=== PATIENT | female | born 1975 | race Caucasian/White ===

== ENCOUNTER → 2020-10-21 09:57 | Outpatient (BNVA) | payer OTHER, SELFPAY | PROVIDERS: PCP Internal Medicine; Referring Provider Internal Medicine; Visit Provider Surgery | DX: K64.4 Residual hemorrhoidal skin tags (principal) | CPT/HCPCS: 46600; 99202 ==

== ENCOUNTER 2020-11-12 06:23 | Day surgery (SDC) | payer OTHER, SELFPAY ==
[2020-11-07 09:38] VITALS: BMI 29.0
[2020-11-12] VITALS (7 sets, daily range): BP systolic 92–109; BP diastolic 61–70; PULSE 60–71; RESP 16–18; TEMP 36.4–37.1; O2SAT 94–99
[2020-11-12 07:25] LABS: UPreg QC Valid YES; Urine Pregnancy NEGATIVE (NEGATIVE)
--- NOTE | 2020-11-12 07:56 | HO.ANESPROP2 ---
[facility] Active Problems Active Problems: All Active Problems (Updated 11/07/20 @ 09:37 by Geneva Dean) Hordeolum externum of right eye (Acute) External hemorrhoids with complication (Acute) Past Medical History Medical History Depression External hemorrhoids with complication Surgical History Surgical History H/O section H/O tubal ligation History of hand surgery History of hemorrhoidectomy History of wisdom tooth extraction Social History Social History Patient Tobacco Use Status: Current someday Tobacco user Tobacco use type: Cigarette Use of substances other than those prescribed or required for medical reasons: No Are you DNR?: No Advance Directives: No Advance Directives Information Provided: No Meds Allergies Allergy/AdvReac Type Severity Reaction Status Date / Time bee pollen [BEE STINGS] Allergy Severe SWELLING Verified 11/12/20 07:05 Environmental Allergy Intermediate Nose Bleed Uncoded 11/12/20 07:05 Home Medications Medication Instructions Recorded Confirmed Last Taken Type bupropion HCl 150 mg 24 hr tablet, 150 mg PO QAM 03/06/20 11/07/20 Unknown History extended release bupropion HCl 300 mg 24 hr tablet, 300 mg PO DAILY 03/06/20 11/07/20 Unknown History extended release epinephrine 0.3 mg/0.3 mL 0.3 mg IM ONCE PRN 03/06/20 11/07/20 Unknown History injection, auto-injector flu vacc [id number] 6mos up(PF) ml IM 03/06/20 10/21/20 Unknown History prednisone 20 mg tablet 20 mg PO BID 03/06/20 10/21/20 Unknown History sertraline 100 mg tablet mg PO 03/06/20 10/21/20 Unknown History sertraline 25 mg tablet 25 mg PO DAILY 03/06/20 11/07/20 Unknown History fluoxetine 40 mg capsule 40 mg PO DAILY 10/21/20 11/07/20 Unknown History Exam Exam Date and Time: November 12, 2020 0756 Height,Weight and Vital Signs: Height 5 ft 2 in Weight 72 kg Last Vital Signs Temp 98.7 F 11/12/20 07:24 Pulse 70 11/12/20 07:24 Resp 18 11/12/20 07:24 BP 107/61 11/12/20 07:24 Pulse Ox 98 11/12/20 07:24 Pertinent Lab Results Pertinent Lab Results: Laboratory Tests 11/12/20 07:08 Urine Test NEGATIVE Airway Mallampati Class: II TM Dist: >3cm Neck ROM: Full Assessment and Plan Assessment Anesthesia Assessment: Anesthesia Plan Discussed and Chart Reviewed Final Anesthetic Review NPO: Yes ASA Class: I Final Preanesthetic Review: No Changes in Pt Med Stat, Meds/Allgs Chart Reviewed, Consent Obtained/Reviewed and Anes Risks/Benef Reviewed Patient Risk: Low Procedure Risk: Low Assessment/Block/Sedation in SS: Assess/Block/Sedation-SS Anesthetic Plan Anesthetic Plan: GA Disposition: Standard PACU
--- NOTE | 2020-11-12 08:12 | MHC.SHP ---
Pre-Procedural Eval Section A Date of Service: 11/12/20 Section B Chief Complaint: External hemorrhoids with complication Allergies: Allergies Allergy/AdvReac Type Severity Reaction Status Date / Time bee pollen [BEE STINGS] Allergy Severe SWELLING Verified 11/12/20 07:05 Environmental Allergy Intermediate Nose Bleed Uncoded 11/12/20 07:05 Plan I have reviewed the history and physical and performed a pertinent physical examination on my patient. No changes have occurred unless specified.
[2020-11-12] MEDS: Lactated Ringers 500 ML 20 ML IVCONT (08:18)
--- NOTE | 2020-11-12 08:59 | W.PM.OPN ---
Operative Note Operative Note Date of Service: 11/12/20 Narrative: Preop diagnosis: External hemorrhoids Postop diagnosis: External hemorrhoids Procedure: Exam under anesthesia hemorrhoidectomy x2 Surgeon: Charles Coto MD The patient is a 45-year-old female with note of external hemorrhoids which he states has been bothering her and she wanted removed. She understood technique lumpectomy. She was aware of the risks, benefits, and alternatives. She had given consent She was brought to the operating room and placed in prone giancarlo-knife position under general anesthesia via LMA. The buttocks were retracted with tape laterally. The perianal area was prepped and draped in the usual sterile fashion. A surgical time-out was done. The patient received Cefotan 2 g IV preoperatively Examination of the anal orifice showed external hemorrhoids on the right side as well as anteriorly. I inserted the Karthik Roger retractor and examined the anal canal circumferentially. There were no significant internal hemorrhoids and there were no other lesions. I did not see any fissure or any induration. I therefore applied a Martin grasper at the external hemorrhoidal column on the right side. I made a bkeyie-cy-qwrpp stitch using chromic 3-0 proximal to this. I made an incision around this hemorrhoidal column using a blade 15. I excised this hemorrhoidal column above the plane of sphincters using scissors. I closed this incision with a running chromic 3-0 stitch using the same suture I made earlier. Additional hemostatic ejbvnd-[id number]-[id number] sutures were placed. I retracted the 2nd hemorrhoidal column with the Martin grasper and made a unxluw-mm-mybqi stitch just proximal to this. This was also made using chromic 3-0. I made an incision around this hemorrhoidal column using blade 15. I excised this hemorrhoidal tissue above the plane of sphincters using scissors. I closed the incision with a running chromic 3-0 stitch with additional hemostatic sutures placed. Once hemostasis was ensured I proceeded to insert a rolled Gelfoam packing into the anal canal. I infiltrated the perianal area with Marcaine 0.5% for postop analgesia. Procedure was then completed The patient tolerated procedure well. There were no complications noted. Initial fine counts of sponges and instruments were correct. Estimated blood loss was about 20 cc. The patient was extubated without difficulty and transferred to the recovery room with stable vital signs.
--- NOTE | 2020-11-12 09:08 | P.BOP_ITS ---
Brief Operative Note Date of Service: 11/12/20 Pre-op diagnosis: Preop diagnosis: External hemorrhoids Post-op diagnosis: same Procedure: EUA, hemorrhoidectomy x2 Surgeon: Charles Coto MD Anesthesia: GLMA Was an [employer] used for this Procedure?: No Estimated blood loss (mL): 20 Pathology: other (Hemorrhoids) Condition: stable Disposition: PACU
== END 2020-11-12 10:30 | disposition home or self-care (01) ==
PROVIDERS: Anesthesiology; PCP Internal Medicine; Visit Provider Surgery
PROC: (CPT 46250; principal; 2020-11-12 08:40)
DX: K64.4 Residual hemorrhoidal skin tags (principal); K62.89 Other specified diseases of anus and rectum; F32.9 Major depressive disorder, single episode, unspecified; Z79.899 Other long term (current) drug therapy; F17.210 Nicotine dependence, cigarettes, uncomplicated
CPT/HCPCS: 46250; 81025; 88304; J1100; J2250; J2405; J3010

== ENCOUNTER 2020-11-22 17:19 | Emergency (ER) | payer OTHER, SELFPAY ==
[2020-11-22 17:33] VITALS: BP 143/78; PULSE 78; RESP 16; TEMP 36.8; O2SAT 99; BMI 29.2
--- NOTE | 2020-11-22 17:54 | ED.GENADULT ---
HPI - General Adult General Chief complaint: General Medical Stated complaint: pt had surgery, possible infection Time Seen by Provider: 11/22/20 17:33 Related Data Home Medications Medication Instructions Recorded Confirmed bupropion HCl 150 mg 24 hr tablet, 150 mg PO QAM 03/06/20 11/07/20 extended release bupropion HCl 300 mg 24 hr tablet, 300 mg PO DAILY 03/06/20 11/07/20 extended release epinephrine 0.3 mg/0.3 mL 0.3 mg IM ONCE PRN 03/06/20 11/07/20 injection, auto-injector flu vacc [id number] 6mos up(PF) ml IM 03/06/20 10/21/20 prednisone 20 mg tablet 20 mg PO BID 03/06/20 10/21/20 sertraline 100 mg tablet mg PO 03/06/20 10/21/20 sertraline 25 mg tablet 25 mg PO DAILY 03/06/20 11/07/20 fluoxetine 40 mg capsule 40 mg PO DAILY 10/21/20 11/07/20 Previous Rx's Medication Instructions Recorded docusate sodium [Colace] 100 mg PO BID #60 cap 11/12/20 ibuprofen 600 mg PO Q6H PRN #30 tab 11/12/20 oxycodone-acetaminophen [Percocet] 1 - 2 tab PO Q4-6H PRN #30 tab 11/12/20 Allergies Allergy/AdvReac Type Severity Reaction Status Date / Time bee pollen [BEE STINGS] Allergy Severe SWELLING Verified 11/12/20 07:05 Environmental Allergy Intermediate Nose Bleed Uncoded 11/12/20 07:05 PMFSH Past Medical History Medical History Depression External hemorrhoids with complication Surgical History H/O section H/O tubal ligation History of hand surgery History of hemorrhoidectomy History of wisdom tooth extraction Social History Social History Patient Tobacco Use Status: Current someday Tobacco user Tobacco use type: Cigarette Patient : No Physical Exam Vital Signs: Vital Signs: Last Vital Signs Temp 98.2 F 11/22/20 17:33 Pulse 78 11/22/20 17:33 Resp 16 11/22/20 17:33 BP 143/78 H 11/22/20 17:33 Pulse Ox 99 11/22/20 17:33 Body Mass Index 29.2 Course Course Course Narrative: 45-year-old female who recently had a hemorrhoidectomy on 11/12/[address] Coto presenting to the ED with complaints of purulent discharge that she noticed today. On exam patient has the sutures still in place although she has mild purulent drainage from the hemorrhoidectomy area. No streaking/induration/surrounding erythema noted at this time. On exam patient is alert and oriented x3. Not in any acute distress. Mildly hypertensive 143/78. Although all other vitals are within normal limits and she is stable to go back to the waiting room to be evaluated in the emergency department. Labs ordered at this time. Discharge Plan Discharge Prescriptions: No Action oxycodone-acetaminophen [Percocet] 5-325 mg tablet 1 - 2 tab PO Q4-6H PRN (Reason: pain) Qty: 30 RF: 0 docusate sodium [Colace] 100 mg capsule 100 mg PO BID Qty: 60 RF: 2 ibuprofen 600 mg tablet 600 mg PO Q6H PRN (Reason: pain) Qty: 30 RF: 0 Fluarix Quad [id number] (PF) 60 mcg (15 mcg x 4)/0.5 mL syringe IM RF: 0 sertraline 25 mg tablet 25 mg PO DAILY RF: 0 epinephrine 0.3 mg/0.3 mL auto-injector 0.3 mg IM ONCE PRN (Reason: Anaphylaxis) RF: 0 bupropion HCl 300 mg tablet extended release 24 hr 300 mg PO DAILY RF: 0 sertraline 100 mg tablet PO RF: 0 prednisone 20 mg tablet 20 mg PO BID RF: 0 bupropion HCl 150 mg tablet extended release 24 hr 150 mg PO QAM RF: 0 fluoxetine 40 mg capsule 40 mg PO DAILY RF: 0
--- NOTE | 2020-11-22 20:25 | ED_ITS ---
HPI - General Adult General Chief complaint: General Medical Stated complaint: pt had surgery, possible infection Time Seen by Provider: 11/22/20 17:33 Source: patient Mode of arrival: ambulatory Limitations: no limitations History of Present Illness HPI narrative: 45-year-old female presents with purulent drainage from hemorrhoidectomy site. Had sutures removed by surgeon, states to have some tenderness at the site with yellow purulent malodorous drainage. She did not report any fevers or chills, does not report any difficulty with bowel movements, denies chest pain or pressure, palpitations, shortness of breath, shortness of breath on exertion, nausea, vomiting, diarrhea, constipation, dysuria, hematuria, edema, or any other concerning symptoms. Onset (ago): day(s) (One) Radiation: non-radiation Severity: moderate Severity scale (1-10): 5 Quality: burning and aching Pain Consistency: constant Relieving factors: none Exacerbating factors: other (Bowel movement) Associated symptoms: denies other symptoms Treatments prior to arrival: none Related Data Home Medications Medication Instructions Recorded Confirmed bupropion HCl 150 mg 24 hr tablet, 150 mg PO QAM 03/06/20 11/07/20 extended release bupropion HCl 300 mg 24 hr tablet, 300 mg PO DAILY 03/06/20 11/07/20 extended release epinephrine 0.3 mg/0.3 mL 0.3 mg IM ONCE PRN 03/06/20 11/07/20 injection, auto-injector flu vacc [id number] 6mos up(PF) ml IM 03/06/20 10/21/20 prednisone 20 mg tablet 20 mg PO BID 03/06/20 10/21/20 sertraline 100 mg tablet mg PO 03/06/20 10/21/20 sertraline 25 mg tablet 25 mg PO DAILY 03/06/20 11/07/20 fluoxetine 40 mg capsule 40 mg PO DAILY 10/21/20 11/07/20 Previous Rx's Medication Instructions Recorded docusate sodium [Colace] 100 mg PO BID #60 cap 11/12/20 ibuprofen 600 mg PO Q6H PRN #30 tab 11/12/20 oxycodone-acetaminophen [Percocet] 1 - 2 tab PO Q4-6H PRN #30 tab 11/12/20 cefuroxime axetil 500 mg PO Q12H 10 Days #20 tab 11/22/20 doxycycline monohydrate 100 mg PO BID 10 Days #20 tab 11/22/20 Allergies Allergy/AdvReac Type Severity Reaction Status Date / Time bee pollen [BEE STINGS] Allergy Severe SWELLING Verified 11/12/20 07:05 Environmental Allergy Intermediate Nose Bleed Uncoded 11/12/20 07:05 Review of Systems Review of Systems: Constitutional: No Fever, No Chills ENT/Mouth: No Ear Pain, No Hoarseness, No sore throat Eyes: No Eye Pain, No Swelling, No Redness, No Foreign Body Cardiovascular: No Chest Pain, No SOB Respiratory: No Cough, No Dyspnea Gastrointestinal: Rectal pain and drainage, No Nausea, No Vomiting, No Diarrhea, No abdominal Pain Genitourinary: No Dysuria, No Hematuria Musculoskeletal: No joint pain, No Myalgias, No Joint Swelling Skin: No Skin lacerations, No rash Neuro: No Weakness, No Numbness, No Paresthesias, No Loss of Consciousness, No Dizziness, No Headache Psych: No Anxiety/Panic, No Depression Heme/Lymph: no easy bruising, no Lymphadenopathy Endocrine: No Polyuria, No Polydipsia Yes all other systems are reviewed and are negative [facility] Past Medical History Attestation statement: The following information was validated with the patient. Source: old records reviewed Medical History Depression External hemorrhoids with complication Surgical History H/O section H/O tubal ligation History of hand surgery History of hemorrhoidectomy History of wisdom tooth extraction Social History Social History Patient Tobacco Use Status: Current someday Tobacco user Tobacco use type: Cigarette Advance Directives: No Advance Directives Information Provided: Yes Patient : No Physical Exam Vital Signs: Vital Signs: Last Vital Signs Temp 98.2 F 11/22/20 17:33 Pulse 78 11/22/20 17:33 Resp 16 11/22/20 17:33 BP 143/78 H 11/22/20 17:33 Pulse Ox 99 11/22/20 17:33 Body Mass Index 29.2 Appearance: Alert. Oriented X3. No acute distress. Eyes: Pupils equal, round and reactive to light. ENT: Pharynx normal. Neck: Normal inspection. Neck supple. CVS: Normal heart rate and rhythm. Pulses normal. Respiratory: No respiratory distress. Breath sounds normal. Abdomen: Soft and nontender. Genitourinary: No palpable rectal abscess, incision site well approximated, no drainage noted at this time. Skin: Skin warm and dry. Normal skin color. Normal skin turgor. Extremities: No lower extremity edema. Neuro: No motor deficit. No sensory deficit. Course Course Course Narrative: 45-year-old female presents with complications from hemorrhoid ectomy site. Had sutures removed earlier in the week and reports some purulent drainage. Upon my examination I do not see any erythema, or notice any purulent malodorous drainage at this time. Will order labs. Labs are negative for acute findings. Patient is nontoxic and afebrile. Will treat with Augmentin and have patient follow-up with her surgeon, which she has an appointment on Wednesday. Patient verbalized understanding of and agrees to plan of care discharge home. Medical Decision Making Differential Diagnosis Differential Diagnosis: Infection, hemorrhoid, abscess Medical Records Medical records reviewed: Yes I reviewed the patient's medical records. Lab Data Lab results reviewed: Yes I reviewed the patient's lab results. Result diagrams: 11/22/20 21:09 11/22/20 21:09 Labs: Lab Results 11/22/20 11/22/20 11/22/20 Range/Units 21:09 21:09 21:09 WBC 7.8 (4.8-10.8) X10*3/uL RBC 4.19 L (4.20-5.50) X10*6/uL Hgb 12.2 (12.0-16.0) g/dl Hct 36.2 L (37-47) % MCV 86.4 (80-98) fL MCH 29.1 (27.0-33.0) pg MCHC 33.7 (31.0-35.0) g/dl RDW 12.3 (11.0-16.0) % Plt Count 276 (160-400) X10*3/uL MPV 11.2 (9.4-12.3) fL Immature Gran % (Auto) 0.3 (0.0-0.4) % Neut % (Auto) 62.1 (45-73) % Lymph % (Auto) 25.9 (20-40) % [place] % (Auto) 9.8 (2-11) % Eos % (Auto) 1.5 (0-4) % Baso % (Auto) 0.4 (0-2) % Lymph # (Auto) 2.0 (1.2-4.9) X10*3/uL [place] # (Auto) 0.8 (0.1-1.2) X10*3/uL Eos # (Auto) 0.1 (0.0-0.4) X10*3/uL Baso # (Auto) 0.0 (0.0-0.2) X10*3/uL Abs Immat Gran (auto) 0.02 (0.00-0.03) X10*3/uL Absolute Neuts (auto) 4.9 (2.0-8.3) X10*3/uL Absolute Nucleated RBC 0.000 (0.0-0.012) X10*3/uL Nucleated RBC % (auto) 0.0 (0.0-0.2) /100WBC ESR 6 (0-20) MM/HR Sodium 140 (135-145) mmol/L Potassium 4.0 (3.3-5.1) mmol/L Chloride 107 (96-108) mmol/L Carbon Dioxide 26 (22-29) mmol/L Anion Gap 11 L (12-20) BUN 12 (9-16) mg/dL Creatinine 0.83 (0.5-1.4) mg/dL Estim Creat Clear Calc 81.5 Estimated GFR > 60 Random Glucose 89 (60-115) mg/dL Calcium 9.1 (8.4-10.2) mg/dL C-Reactive Protein 0.13 (< or = 0.50) mg/dL Discharge Plan Discharge Clinical Impression: External hemorrhoids with complication Patient Disposition: Home, Self-Care Instructions: Hemorrhoids (ED), Hemorrhoidectomy (DC) Additional Instructions: you were evaluated for post hemorrhoidectomy complication. Please take doxycycline and Keflex as directed. Medications are antibiotics. Please use dibucaine ointment as needed for rectal pain. Continue to follow- up with Dr. Coto on Wednesday. Thank you for choosing this emergency department for evaluation. Please follow-up with primary care physician as needed. Return to the emergency department for any new, concerning, or worsening symptoms. Prescriptions: New doxycycline monohydrate 100 mg tablet 100 mg PO BID 10 Days Qty: 20 RF: 0 cefuroxime axetil 500 mg tablet 500 mg PO Q12H 10 Days Qty: 20 RF: 0 No Action oxycodone-acetaminophen [Percocet] 5-325 mg tablet 1 - 2 tab PO Q4-6H PRN (Reason: pain) Qty: 30 RF: 0 docusate sodium [Colace] 100 mg capsule 100 mg PO BID Qty: 60 RF: 2 ibuprofen 600 mg tablet 600 mg PO Q6H PRN (Reason: pain) Qty: 30 RF: 0 Fluarix Quad [id number] (PF) 60 mcg (15 mcg x 4)/0.5 mL syringe IM RF: 0 sertraline 25 mg tablet 25 mg PO DAILY RF: 0 epinephrine 0.3 mg/0.3 mL auto-injector 0.3 mg IM ONCE PRN (Reason: Anaphylaxis) RF: 0 bupropion HCl 300 mg tablet extended release 24 hr 300 mg PO DAILY RF: 0 sertraline 100 mg tablet PO RF: 0 prednisone 20 mg tablet 20 mg PO BID RF: 0 bupropion HCl 150 mg tablet extended release 24 hr 150 mg PO QAM RF: 0 fluoxetine 40 mg capsule 40 mg PO DAILY RF: 0 Interventions: ED Discharge Assessment Last Done: 11/22/20 23:04 Discharge Date/Time: 11/22/20 23:06
[2020-11-22 21:13] LABS: Basophils Percent Auto 0.4 % (0-2); Eosinophils Absolute Auto 0.1 X10*3/uL (0.0-0.4); Eosinophils Percent Auto 1.5 % (0-4); Hematocrit 36.2 % (37-47); Hemoglobin 12.2 g/dl (12.0-16.0); Imm Gran Abs Auto 0.02 X10*3/uL (0.00-0.03); Imm Gran Pct Auto 0.3 % (0.0-0.4); Lymphocytes Percent Auto 25.9 % (20-40); MANUAL DIFF FLAG NO; Mean Corpuscular HGB Conc 33.7 g/dl (31.0-35.0); Mean Corpuscular Hemoglobin 29.1 pg (27.0-33.0); Mean Corpuscular Volume 86.4 fL (80-98); Mean Platelet Volume 11.2 fL (9.4-12.3); Monocytes Absolute Auto 0.8 X10*3/uL (0.1-1.2); Monocytes Percent Auto 9.8 % (2-11); Neutrophils Absolute Auto 4.9 X10*3/uL (2.0-8.3); Neutrophils Percent Auto 62.1 % (45-73); Platelet Count 276 X10*3/uL (160-400); Red Blood Count 4.19 X10*6/uL (4.20-5.50); Red Cell Distribution Width 12.3 % (11.0-16.0); White Blood Count 7.8 X10*3/uL (4.8-10.8)
[2020-11-22 21:46] LABS: Anion Gap 11 (12-20); Blood Urea Nitrogen 12 mg/dL (9-16); C Reactive Protein 0.13 mg/dL (< or = 0.50); Calcium 9.1 mg/dL (8.4-10.2); Carbon Dioxide 26 mmol/L (22-29); Chloride 107 mmol/L (96-108); Creatinine Clr Calc Pharmacy 81.5; Estimated Glomerular Filt Rate > 60; Glucose Random 89 mg/dL (60-115); Sodium 140 mmol/L (135-145)
[2020-11-22 21:56] LABS: Erythrocyte Sedimentation Rate 6 MM/HR (0-20)
== END 2020-11-22 23:06 | disposition home or self-care (01) ==
PROVIDERS: Physician Assistant Medical; Emergency Provider Emergency Medicine; PCP Internal Medicine
DX: K64.4 Residual hemorrhoidal skin tags (principal); F17.200 Nicotine dependence, unspecified, uncomplicated; Z71.6 Tobacco abuse counseling; Z79.899 Other long term (current) drug therapy
CPT/HCPCS: 36415; 80048; 85025; 85652; 86140; 99284

== ENCOUNTER → 2020-11-27 10:25 | Outpatient (BNVA) | payer OTHER, SELFPAY | PROVIDERS: PCP Internal Medicine; Referring Provider Internal Medicine; Visit Provider Surgery | DX: Z48.815 Encounter for surgical aftercare following surgery on the digestive system (principal); Z87.19 Personal history of other diseases of the digestive system | CPT/HCPCS: 99212 ==

== ENCOUNTER → 2020-12-26 10:53 | Outpatient (BNVA) | payer OTHER, SELFPAY | PROVIDERS: PCP Internal Medicine; Referring Provider Internal Medicine; Visit Provider Surgery | DX: Z48.815 Encounter for surgical aftercare following surgery on the digestive system (principal); Z87.19 Personal history of other diseases of the digestive system | CPT/HCPCS: 99212 ==

== ENCOUNTER 2022-04-21 08:29 | Outpatient (REF) | payer OTHER, SELFPAY ==
[2022-04-21 11:28] LABS: MANUAL DIFF FLAG NO
[2022-04-21 11:33] LABS: Basophils Absolute Auto 0.1 X10*3/uL (0.0-0.2); Basophils Percent Auto 0.7 % (0-2); Eosinophils Absolute Auto 0.1 X10*3/uL (0.0-0.4); Eosinophils Percent Auto 1.6 % (0-4); Hematocrit 40.5 % (37.0-47.0); Hemoglobin 13.2 g/dl (12.0-16.0); Imm Gran Abs Auto 0.02 X10*3/uL (0.00-0.03); Imm Gran Pct Auto 0.3 % (0.0-0.4); Lymphocytes Absolute Auto 1.5 X10*3/uL (1.2-4.9); Lymphocytes Percent Auto 21.2 % (20-40); Mean Corpuscular HGB Conc 32.6 g/dl (31.0-35.0); Mean Corpuscular Hemoglobin 28.3 pg (27.0-33.0); Mean Corpuscular Volume 86.7 fL (80.0-98.0); Mean Platelet Volume 11.8 fL (9.4-12.3); Monocytes Absolute Auto 0.8 X10*3/uL (0.1-1.2); Monocytes Percent Auto 11.5 % (2-11); Neutrophils Absolute Auto 4.4 x10*3/uL (2.0-8.3); Neutrophils Percent Auto 64.7 % (45-73); Platelet Count 293 X10*3/uL (160-400); Red Blood Count 4.67 X10*6/uL (4.20-5.50); Red Cell Distribution Width 12.5 % (11.0-16.0); White Blood Count 6.8 X10*3/uL (4.8-10.8)
[2022-04-21 13:55] LABS: Alanine Aminotransferase 13 U/L (0-31); Albumin Level 4.2 g/dL (3.5-5.0); Alkaline Phosphatase 55 U/L (39-117); Anion Gap 11 (12-20); Aspartate Amino Transferase 15 U/L (5-31); Bilirubin Total 1.5 mg/dL (0.0-1.0); Blood Urea Nitrogen 11 mg/dL (9-16); Calcium 9.1 mg/dL (8.4-10.2); Carbon Dioxide 26 mmol/L (22-29); Chloride 106 mmol/L (96-108); Cholesterol 190 mg/dL; Estimated Glomerular Filt Rate > 60; Glucose Fasting 95 mg/dL (60-99); HDL Cholesterol 47 mg/dL; LDL Cholesterol Calculated 128 mg/dl; Potassium 4.3 mmol/L (3.3-5.1); Sodium 139 mmol/L (135-145); TSH reflex Free T4 1.39 uIU/mL (0.32-4.0); Triglycerides 77 mg/dL
== END 2022-04-21 08:30 | disposition home or self-care (01) ==
LOC: HO.HMGCLDS 08:29
PROVIDERS: PCP Internal Medicine; Visit Provider Internal Medicine
DX: Z00.01 Encounter for general adult medical examination with abnormal findings (principal); E66.09 Other obesity due to excess calories; F33.9 Major depressive disorder, recurrent, unspecified; F41.1 Generalized anxiety disorder
CPT/HCPCS: 36415; 80053; 80061; 84443; 85025

== ENCOUNTER 2023-02-09 13:26 | Outpatient (AMB) | payer OTHER, SELFPAY ==
--- NOTE | 2023-02-09 13:26 | MHC.PC.OV ---
Intake Visit Reasons: follow up anxiety/depression Allergies bee pollen [BEE STINGS] Allergy (Severe, Verified 02/09/23 13:28) SWELLING Environmental Allergy (Intermediate, Uncoded 04/08/22 12:57) Nose Bleed Medication List - Last Reconciled 02/09/23 by Reuben Xie MD fluoxetine 40 mg (2 x 20 mg) PO DAILY 90 days Tobacco use date assessed: 02/09/23 Dental Screening Dental Screen Date: 02/09/23 Did you have a dental visit in the last 12 months?: Yes Did you have a dental problem in the last 6 months where you did not have access to dental care?: No Was dental information given to patient?: Patient has dentist HPI follow up anxiety/depression HPI Details Patient is 49-year-old female this is a telemedicine follow-up appointment on anxiety Patient is taking 40 mg of fluoxetine, she is doing well No side effects. She is to continue same does. She has a follow-up appointment in April for physical examination we will order labs then [facility] Medical History Depression External hemorrhoids with complication Surgical History H/O tubal ligation History of hemorrhoidectomy History of wisdom tooth extraction History of hand surgery H/O section Social History Housing: House Patient Tobacco Use Status: Former Tobacco user Tobacco use type: Cigarette e-Cigarette/Vaping Use: Never Used Second Hand Smoke Exposure: No service: No Current occupational status: employed Current occupational exposures/hazards: No Cognitive needs: No Hearing needs: No Vision needs: No Questionnaire PHQ-9 Over the last 2 weeks, how often have you been bothered by any of the following problems? 1. Little interest or pleasure in doing things: not at all 2. Feeling down, depressed, or hopeless: not at all 3. Trouble falling or staying asleep, or sleeping too much: not at all 4. Feeling tired or having little energy: several days 5. Poor appetite or overeating: more than half the days 6. Feeling bad about yourself - or that you are a failure or have let yourself or your family down: not at all 7. Trouble concentrating on things, such as reading the newspaper or watching television: not at all 8. Moving or speaking so slowly that other people could have noticed. Or the opposite - being so fidgety or restless that you have been moving around a lot more than usual: not at all 9. Thoughts that you would be better off or of hurting yourself in some way: not at all Total score: 3 Depression Screening Interpretation: Negative Depression Screening Done: Yes 00374 - PHQ-9 Billing: Yes Source: Developed by Drs. Zhao Nguyễn, Balbina Godfrey, Johnie Payan and colleagues, with an educational gallito from [employer]. Thrive Questionnaire Date Thrive assessed: 04/15/22 AUDIT C Alcohol Use Questionnaire (AUDIT-C) 1. How often do you have a drink containing alcohol?: Never 3. How often do you have six or more drinks on one occasion?: Never Total Score: 0 Score Reviewed/Action Taken: Yes YESENIA-7 AMB Questionnaire YESENIA-7 Date YESENIA - 7 assessed: 04/15/22 Source: Developed by Drs. Zhao Nguyễn, Balbina Godfrey, Johnie Payan and colleagues, with an educational gallito from [employer]. Review of Systems Const Denies chills and Denies fever(s) ENT Denies epistaxis and Denies nasal discharge Card Denies chest pain Resp Denies chest congestion, Denies cough and Denies hemoptysis GI Denies diarrhea and Denies nausea Skin/Breast Denies rash Neuro Reports no additional complaints Psych Reports no additional complaints Endo Reports no additional complaints Physical exam (Primary Care) Tobacco/Smoking Status: Tobacco use Status Tobacco use date assessed 02/09/23 02/09/23 13:28 Patient Tobacco Use Status Former Tobacco user 02/09/23 13:26 Tobacco use type Cigarette 02/09/23 13:26 e-Cigarette/Vaping Use Never Used 02/09/23 13:26 PHQ-9: PHQ-9 Score PHQ-9: Total score 3 02/09/23 13:28 Depression Screening Interpretation: Negative Thrive Assessment: Date of Thrive Assessment Date Thrive assessed 04/15/22 02/09/23 13:26 Telehealth Telehealth Location of provider rendering services: practice address Location of patient: address on file Patient Identification confirmed using: Name, : Yes Telehealth method: video (Video Was attempted) Patient verbally consented to treatment: Yes Patient verbally consented to billing insurance company: Yes Patient informed of any privacy concerns related to visit: Yes Assessment and Plan Assessment & Plan (1) Anxiety, generalized: Code(s): F41.1 - Generalized anxiety disorder (2) Major depression, recurrent: Code(s): F33.9 - Major depressive disorder, recurrent, unspecified Qualifiers: Active/Remission status: in full remission Qualified Code(s): F33.42 - Major depressive disorder, recurrent, in full remission Plan Patient is 49-year-old female this is a telemedicine follow-up appointment on anxiety and depression Patient is taking 40 mg of fluoxetine, she is doing well No side effects. She is to continue same does. She has a follow-up appointment in April for physical examination we will order labs then Coding Level of Care Code Tele Est Pt Level 3 (70401) Diagnoses Anxiety, generalized F41.1 Recurrent major depressive disorder, in full remission F33.42 Active/Remission status: in full remission
== END 2023-02-09 15:17 | disposition home or self-care (01) ==
LOC: HO.HMGC 13:26
PROVIDERS: PCP Internal Medicine; Visit Provider Internal Medicine
DX: F41.1 Generalized anxiety disorder (principal); F33.42 Major depressive disorder, recurrent, in full remission
CPT/HCPCS: 99213

== ENCOUNTER 2023-02-12 09:30 | Outpatient (AMB) | payer OTHER, SELFPAY ==
--- NOTE | 2023-02-12 13:04 | AM.OFFWIN_ITS ---
Intake Vital Signs 02/12/23 13:11 Weight 177 lb BP 108/64 Blood Pressure Location Rt brachial Position Sitting Pulse 90 Pulse Source Pulse Oximeter Temp 98.7 F Temp Source Oral Pulse Oximetry (%) 99 Oxygen Delivery Method Room Air Intake Visit Reasons: EP-Respiratory infection?/[phone] Intake Note: Patient here for cough, sore throat, lost voice, headaches, bodyaches and post nasal drip. Pt denies exposure to anyone who has been sick recently. Patient Tobacco Use Status: Former Tobacco user Allergies bee pollen [BEE STINGS] Allergy (Severe, Verified 02/12/23 13:13) SWELLING Environmental Allergy (Intermediate, Uncoded 02/12/23 13:13) Nose Bleed Do you need a note to return to daycare/school/sports/work: Yes HPI HPI Comments History of Present Illness0 Details This is a 47-year-old femalewho presents to the office today for sick visit. Patient complaining of viral URI symptoms including congestion, rhinorrhe a, sore throat, cough with yellow sputum production, and low-grade fever/chills x 3 days. She reports some mild chest soreness with coughing. [facility] Medical History Depression External hemorrhoids with complication Surgical History H/O tubal ligation History of hemorrhoidectomy History of wisdom tooth extraction History of hand surgery H/O section Social History Housing: House Patient Tobacco Use Status: Former Tobacco user Tobacco use type: Cigarette e-Cigarette/Vaping Use: Never Used Second Hand Smoke Exposure: No service: No Current occupational status: employed Current occupational exposures/hazards: No Cognitive needs: No Hearing needs: No Vision needs: No Review of Systems Const All systems reviewed & are unremarkable except as noted in HPI and below Reports no additional complaints Eyes Reports no additional complaints ENT Reports no additional complaints Card Reports no additional complaints Resp Reports no additional complaints GI Reports no additional complaints Reports no additional complaints Musc Reports no additional complaints Skin/Breast Reports system reviewed and no additional complaints, except as documented Neuro Reports no additional complaints Psych Reports no additional complaints Endo Reports no additional complaints Toby/Lymph Reports no additional complaints Aller/Immun Reports no additional complaints Physical Exam Vital Signs: Last Vital Signs Temp 98.7 F 02/12/23 13:11 Pulse 90 02/12/23 13:11 BP 108/64 02/12/23 13:11 Pulse Ox 99 02/12/23 13:11 Oxygen Delivery Method Room Air 02/12/23 13:11 Const Other: Vital signs reviewed. Constitutional: Non-toxic appearing. No acute distress. Well-developed and well-nourished. HEENT: Normocephalic and atraumatic. Tympanic membranes without erythema, edema, or bulging bilaterally. External auditory canals without erythema or edema bilaterally. Moist mucous membranes. Minimal posterior pharyngeal erythema but no exudates. Skin: Warm and dry. No rashes or lesions noted. Neck: Full and painless range of motion. No cervical lymphadenopathy. Cardio: Regular rate and rhythm. No murmurs, gallops, or rubs. No lower extremity edema. No JVD. Pulmonary: No respiratory distress. No accessory muscle usage. Clear to ausc ultation bilaterally without wheezing, crackles, or rhonchi. Gastrointestinal: Soft, nontender, and nondistended in all 4 quadrants. Normoactive bowel sounds in all 4 quadrants. Genitourinary: No CVA tenderness. Musculoskeletal: Normal range of motion in joints throughout the body. No deformity or other signs of injury. Neuro: Alert and oriented x4. Cranial nerves 2-12 grossly intact. No focal deficits appreciated. Psych: Normal mood and affect. Results AMB Rapid Strep AMB Rapid Strep Negative Last Edit by KEITH Arnold on 02/12/23 13:17 Assessment & Plan Assessment & Plan (1) Viral URI with cough: Code(s): J06.9 - Acute upper respiratory infection, unspecified Plan: This is a 47-year-old female presenting to the office complaining of viral URI symptoms. Patient presenting with signs and symptoms most consistent with acute respiratory tract infection. Recommended symptomatic management including rest, increased fluids, advil/tylenol for pain/fever, and over the counter throat lozenges/decongestants. Patient was reassured that this is a self-limiting illness that does not require antibiotic treatment. However, patient adamantly requesting antibiotic treatment. I explained to the patient that antibiotics do not help with viral infections but azithromycin does have some anti-inflammatory properties so sometimes patients can feel better with azithromycin. Patient was made aware that antibiotics can cause GI upset, C difficile colitis, and increased risk for multi-drug resistant organisms. Regardless, patient requesting antibiotic treatment. I recommended that the patient try symptomatic management for the next several days but if she does not feel better in the next 72 hours, she can utilize azithromycin. Patient advised to follow up here or go to the emergency room for worsening/persistent symptoms. Patient verbalized understanding and is agreeable with the plan. Orders: Orders AMB Rapid Strep Screen Today Z13.9 - Encounter for screening, unspecified SARS-CoV2/FLU/RSV Today R09.89 - Other specified symptoms and signs involving the circulatory and respiratory systems Medications: New benzonatate 100 mg PO TID PRN 20 caps 0RF cough azithromycin For 250 mg dose pack: take 500 mg today (day 1), then 250 mg for 4 days (days 2-5) PO 6 tabs 0RF Coding Level of Care Code Est Pt Level 3 (86907) Diagnoses Viral URI with cough J06.9
[2023-02-12 13:11] VITALS: BP 108/64; PULSE 90; TEMP 37.1; O2SAT 99
== END 2023-02-12 13:39 | disposition home or self-care (01) ==
PROVIDERS: PCP Internal Medicine; Visit Provider Physician Assistant Medical
DX: J06.9 Acute upper respiratory infection, unspecified (principal); J02.9 Acute pharyngitis, unspecified
CPT/HCPCS: 87880; 99213

== ENCOUNTER 2023-02-12 15:53 | Outpatient (REF) | payer OTHER, SELFPAY ==
[2023-02-12 17:48] LABS: Influenza A PCR NEGATIVE (Negative); Influenza B PCR NEGATIVE (Negative); Resp Syncy Virus RNA Qual PCR NEGATIVE (Negative); SARS COV2 PCR INHOUSE NEGATIVE (Negative)
== END 2023-02-12 15:54 | disposition home or self-care (01) ==
LOC: HO.LNP 15:53
PROVIDERS: Visit Provider Physician Assistant Medical
DX: R09.89 Other specified symptoms and signs involving the circulatory and respiratory systems (principal); Z11.52 Encounter for screening for COVID-19
CPT/HCPCS: 0241U

== ENCOUNTER 2023-04-21 14:29 | Outpatient (AMB) | payer OTHER, SELFPAY ==
--- NOTE | 2023-04-21 14:31 | A.OFFPC_ITS ---
Vital Signs 04/21/23 14:44 Height 5 ft 2 in Weight 175 lb 8 oz BMI 32.1 BP 110/72 Blood Pressure Location Lt brachial Position Sitting Pulse 83 Pulse Source Pulse Oximeter Pulse Oximetry (%) 99 Oxygen Delivery Method Room Air Intake Visit Reasons: Annual PE Allergies bee pollen [BEE STINGS] Allergy (Severe, Verified 04/21/23 14:31) SWELLING Environmental Allergy (Intermediate, Uncoded 02/12/23 13:13) Nose Bleed Medication List - Last Reconciled 04/21/23 by Reuben Xie MD fluoxetine 40 mg PO DAILY Tobacco use date assessed: 04/21/23 Dental Screening Dental Screen Date: 04/21/23 Did you have a dental visit in the last 12 months?: Yes Did you have a dental problem in the last 6 months where you did not have access to dental care?: No Was dental information given to patient?: Patient has dentist HPI Annual PE HPI Details Physical exam appointment Patient is seeing [facility], mammogram through them Depression and anxiety stable with fluoxetine 40 mg patient is tolerating medication Lab order placed BMI is elevated at 32.1 need to lose weight Follow-up 3 months for medication refill 1 year physical exam [facility] Medical History Depression External hemorrhoids with complication Surgical History H/O tubal ligation History of hemorrhoidectomy History of wisdom tooth extraction History of hand surgery H/O section Social History Housing: House Patient Tobacco Use Status: Former Tobacco user Tobacco use type: Cigarette e-Cigarette/Vaping Use: Never Used Second Hand Smoke Exposure: No service: No Current occupational status: employed Current occupational exposures/hazards: No Cognitive needs: No Hearing needs: No Vision needs: No Questionnaire PHQ-9 Over the last 2 weeks, how often have you been bothered by any of the following problems? 1. Little interest or pleasure in doing things: not at all 2. Feeling down, depressed, or hopeless: not at all 3. Trouble falling or staying asleep, or sleeping too much: several days 4. Feeling tired or having little energy: nearly every day 5. Poor appetite or overeating: nearly every day 6. Feeling bad about yourself - or that you are a failure or have let yourself or your family down: not at all 7. Trouble concentrating on things, such as reading the newspaper or watching television: not at all 8. Moving or speaking so slowly that other people could have noticed. Or the opposite - being so fidgety or restless that you have been moving around a lot more than usual: several days 9. Thoughts that you would be better off or of hurting yourself in some way: not at all Total score: 8 Depression Screening Interpretation: Negative Depression Screening Done: Yes 89014 - PHQ-9 Billing: Yes Source: Developed by Drs. Zhao Nguyễn, Balbina Godfrey, Johnie Payan and colleagues, with an educational gallito from [employer]. Thrive Questionnaire Date Thrive assessed: 04/21/23 I am a: Patient What is your living situation today?: I have a steady place to live Within the past 12 months, did the food you bought not last and you didn't have the money to get more?: Never true Within the past 12 months, did you worry whether your food would run out before you got money to buy more?: Never true Do you have trouble paying for medicines?: No Do you have trouble getting transportation to medical appointments?: No Do you have trouble paying your heating and electricity bill?: No Do you have trouble taking care of your child, family member or friend?: No Do you have trouble with day-to-day activities such as bathing, preparing meals, shopping, managing finances, etc.?: No Are you currently unemployed and looking for a job?: No Are you interested in more education?: No Please select the resources that you would like help with: None Currently or been in a relationship where the following occur: no concerns reported YESENIA-7 AMB Questionnaire YESENIA-7 Date YESENIA - 7 assessed: 04/21/23 Feeling nervous, anxious, or on edge: 0 = Not at all Not being able to stop or control worryin = Not at all Worrying too much about different things: 0 = Not at all Trouble relaxin = Not at all Being so restless that it is hard to sit still: 0 = Not at all Becoming easily annoyed or irritable: 0 = Not at all Feeling afraid as if something awful might happen: 0 = Not at all Total YESENIA-7 score (0-4 normal; 5-9 mild; 10-14 moderate; 15-21 severe): 0 Source: Developed by Drs. Zhao Nguyễn, Balbina Godfrey, Johnie Payan and colleagues, with an educational gallito from [employer]. YESENIA-7 Assessment Billing YESENIA-7 Assessment Tool: YESENIA-7 Assessment [id number] Review of Systems Const Denies chills, Denies fever(s) and Denies headache(s) Eyes Denies blurry vision ENT Denies headache(s), Denies nasal discharge, Denies nasal obstruction, Denies odynophagia and Denies sinus pain Card Denies chest pain at rest and Denies chest pain with activity Resp Denies cough and Denies hemoptysis GI Denies diarrhea, Denies odynophagia, Denies vomiting and Denies hematemesis Reports as per HPI Musc Denies abnormal gait Skin/Breast Reports as per HPI Neuro Denies Neuro-related abnormal movements, Denies Abnormal speech present, Denies abnormal gait, Denies headache(s) and Denies Sensory deficit (Neuro) Psych Denies mood swings and Denies paranoia Endo Reports as per HPI Toby/Lymph Reports as per HPI Aller/Immun Reports as per HPI Physical exam (Primary Care) Vital Signs: Last Vital Signs Pulse 83 04/21/23 14:44 BP 110/72 04/21/23 14:44 Pulse Ox 99 04/21/23 14:44 Oxygen Delivery Method Room Air 04/21/23 14:44 BMI result Body Mass Index 32.1 Tobacco/Smoking Status: Tobacco use Status Tobacco use date assessed 04/21/23 04/21/23 14:32 Patient Tobacco Use Status Former Tobacco user 04/21/23 14:32 Tobacco use type Cigarette 04/21/23 14:32 e-Cigarette/Vaping Use Never Used 04/21/23 14:32 PHQ-9: PHQ-9 Score PHQ-9: Total score 8 04/21/23 14:53 Depression Screening Interpretation: Negative Thrive Assessment: Date of Thrive Assessment Date Thrive assessed 04/21/23 04/21/23 14:48 Currently or been in a relationship where the following occur: no concerns reported Const General: cooperative, comfortable and no acute distress Orientation/consciousness: patient oriented x3 HENMT Head: Yes normocephalic and Yes atraumatic Eyes General: appearance normal, both eyes and all related structures Pupils: Equal, round and reactive pupils present EOM: EOMs intact bilaterally Neck Neck: Yes supple and No lymphadenopathy Thyroid: Thyroid normal Lymphatic: no lymphadenopathy noted Resp Effort & Inspection: normal respiratory effort and able to speak in complete sentences Auscultation: clear to auscultation bilaterally Cardio Heart sounds: S1 normal heart sound present and S2 normal heart sound present GI Palpation (GI): Soft to palpation and nontender Auscultation: normal bowel sounds General: Yes no CVA tenderness Back/Spine/Pelvis Back: no CVA tenderness Skin General skin exam: elasticity normal and turgor normal Neuro General: patient oriented x3 and gait normal Cranial nerves: Yes Equal, round and reactive pupils present Speech: No Abnormal speech present Sensory Exam: No Sensory deficit (Neuro) Coordination: tandem gait normal and Romberg test negative Extrem General: Yes normal exam except as noted and No edema Assessment and Plan Assessment & Plan (1) Encounter for general adult medical examination with abnormal findings: Code(s): Z00.01 - Encounter for general adult medical examination with abnormal findings (2) Major depression, recurrent: Code(s): F33.9 - Major depressive disorder, recurrent, unspecified Qualifiers: Active/Remission status: in full remission Qualified Code(s): F33.42 - Major depressive disorder, recurrent, in full remission (3) Obesity due to excess calories: Code(s): E66.09 - Other obesity due to excess calories Qualifiers: Body mass index: BMI 32.0-32.9 Obesity classification: adult class 1 (BMI 30 - 34.9) Serious obesity comorbidity presence: without serious comorbidity Qualified Code(s): E66.09 - Other obesity due to excess calories; Z68.32 - Body mass index [BMI] 32.0-32.9, adult (4) Anxiety, generalized: Code(s): F41.1 - Generalized anxiety disorder Plan Physical exam appointment Patient is seeing [facility], mammogram through them Depression and anxiety stable with fluoxetine 40 mg patient is tolerating medication Lab order placed BMI is elevated at 32.1 need to lose weight Follow-up 3 months for medication refill 1 year physical exam Orders: Orders Complete Blood Count Auto Diff Today E66.09 - Other obesity due to excess calories, F33.9 - Major depressive disorder, recurrent, unspecified, F41.1 - Generalized anxiety disorder, Z00.01 - Encounter for general adult medical examination with abnormal findings Comprehensive Met. Panel Today E66.09 - Other obesity due to excess calories, F33.9 - Major depressive disorder, recurrent, unspecified, F41.1 - Generalized anxiety disorder, Z00.01 - Encounter for general adult medical examination with abnormal findings LDL Cholesterol Direct Today E66.09 - Other obesity due to excess calories, F33.9 - Major depressive disorder, recurrent, unspecified, F41.1 - Generalized anxiety disorder, Z00.01 - Encounter for general adult medical examination with abnormal findings TSH reflex Free T4 Today E66.09 - Other obesity due to excess calories, F33.9 - Major depressive disorder, recurrent, unspecified, F41.1 - Generalized anxiety disorder, Z00.01 - Encounter for general adult medical examination with abnormal findings Medications: New fluoxetine 40 mg PO DAILY 90 caps 0RF Coding Level of Care Code Est Pt Prev Care 40-64y(90482) Diagnoses Encounter for general adult medical examination with abnormal findings Z00.01 Recurrent major depressive disorder, in full remission F33.42 Active/Remission status: in full remission Class 1 obesity due to excess calories without serious comorbidity with body mass index (BMI) of 32.0 to 32.9 in adult E66.09; Z68.32 Body mass index: BMI 32.0-32.9 Obesity classification: adult class 1 (BMI 30 - 34.9) Serious obesity comorbidity presence: without serious comorbidity Anxiety, generalized F41.1 Additional Codes YESENIA-7 Assessment Billing - YESENIA-7 Assessment Tool: YESENIA-7 Assessment [id number] ([id number])
[2023-04-21 14:44] VITALS: BP 110/72; PULSE 83; O2SAT 99; BMI 32.1
== END 2023-04-21 15:15 | disposition home or self-care (01) ==
PROVIDERS: Visit Provider Internal Medicine
DX: Z00.00 Encounter for general adult medical examination without abnormal findings (principal); F33.42 Major depressive disorder, recurrent, in full remission; E66.09 Other obesity due to excess calories; Z68.32 Body mass index [BMI] 32.0-32.9, adult; F41.1 Generalized anxiety disorder
CPT/HCPCS: 99396

== ENCOUNTER 2023-05-11 09:15 | Outpatient (AMB) | payer OTHER, SELFPAY ==
--- NOTE | 2023-05-11 10:30 | MHC.OFFWIV ---
Intake Vital Signs 05/11/23 10:31 Height 5 ft 2 in Weight 179 lb BMI 32.7 BP 110/62 Blood Pressure Location Rt brachial Position Sitting Pulse 76 Pulse Source Pulse Oximeter Temp 97.2 F Temp Source Temporal Artery Scan Pulse Oximetry (%) 99 Oxygen Delivery Method Room Air Intake Visit Reasons: EP Cough, Mucus, Body ache [phone] Intake Note: Pt is here c/o body aches, mucus and a bad cough for four days. Patient Tobacco Use Status: Former Tobacco user Allergies bee pollen [BEE STINGS] Allergy (Severe, Verified 05/11/23 10:31) SWELLING Environmental Allergy (Intermediate, Uncoded 05/11/23 10:31) Nose Bleed Do you need a note to return to daycare/school/sports/work: Yes HPI HPI Comments History of Present Illness Details Patient is a 47-year-old female in today for sick visit. She states that over the past several days she has developed symptoms of chest congestion, green sputum production, headache, sore throat, cough. She states that her 10-year-old son at home is also sick. His use [id number] medicine with some relief. Denies dizziness, numbness, chest pain, shortness a breath, vomiting, diarrhea. PFSH Medical History Depression External hemorrhoids with complication Surgical History H/O tubal ligation History of hemorrhoidectomy History of wisdom tooth extraction History of hand surgery H/O section Social History Housing: House Patient Tobacco Use Status: Former Tobacco user Tobacco use type: Cigarette e-Cigarette/Vaping Use: Never Used Second Hand Smoke Exposure: No service: No Current occupational status: employed Current occupational exposures/hazards: No Cognitive needs: No Hearing needs: No Vision needs: No Review of Systems Const Details: Constitutional : No Weight loss, No Fever, No Chills, No Fatigue, Admits some Malaise ENT/Mouth : Admits sore throat, No Rhinorrhea Eyes: No Eye Pain, No Swelling, No Redness Cardiovascular : No Chest Pain, No SOB, No Dyspnea on Exertion, No Orthopnea, No Edema, No Palpitations Respiratory : Admits Cough, Admits Sputum, No Wheezing Gastrointestinal : No Nausea, No Vomiting, No Diarrhea, No Constipation, No abdominal Pain, No Hematochezia, No Melena Genitourinary : No Dysuria, No Urinary Frequency, No Hematuria, Musculoskeletal : No joint pain, No Myalgias, No Joint Swelling Skin : No Skin Lesions, No rash Neuro : No Weakness, No Numbness, No Dizziness, No Headache Psych : No Anxiety/Panic, No Depression Heme/Lymph: No Bruising, No Bleeding,No Lymphadenopathy Endocrine : No Polyuria, No Polydipsia All other systems reviewed and are negative Physical Exam Vital Signs: Last Vital Signs Temp 97.2 F 05/11/23 10:31 Pulse 76 05/11/23 10:31 BP 110/62 05/11/23 10:31 Pulse Ox 99 05/11/23 10:31 Oxygen Delivery Method Room Air 05/11/23 10:31 BMI result Body Mass Index 32.7 Const Other: Appearance: Alert.? Oriented X3.? No acute distress.? Head: Normocephalic, atraumatic, no step-offs or deformities Eyes: Pupils equal, round and reactive to light.? ENT: Pharynx erythema.?TM intact and pearly lewis. Neck: Normal inspection.? Neck supple.?Full ROM CVS: Normal heart rate and rhythm.? Pulses normal.? Respiratory: No respiratory distress.? Breath sounds normal.? Abdomen: Soft and nontender.? Neuro: Oriented X 3.? No motor deficit.? No sensory deficit. CN 2-12 intact Assessment & Plan Assessment & Plan (1) Upper respiratory infection: Comment: Will give patient prednisone, benzonatate, and azithromycin to be taken as directed. Patient has been educated on signs of worsening symptoms when to report the walk-in or when to present to the ER. Patient states she understands this. Code(s): J06.9 - Acute upper respiratory infection, unspecified Qualifiers: URI type: unspecified URI Qualified Code(s): J06.9 - Acute upper respiratory infection, unspecified Plan: Take your medications as prescribed. If you were prescribed antibiotics today, it is important that you take your medication to their entirety, do not skip any doses, do not finish them early. Follow-up with your primary care provider this week. Return to the emergency department with new or worsening symptoms. Such as fevers, chills, chest pain, shortness of breath, nausea, vomiting, dizziness, headache, vision changes, lethargy In case of emergency call 911 Plan Follow up with PCP. Orders: Orders SARS-CoV2/FLU/RSV Today J06.9 - Acute upper respiratory infection, unspecified Medications: New prednisone 20 mg PO BID 10 tabs 0RF azithromycin For 250 mg dose pack: take 500 mg today (day 1), then 250 mg for 4 days (days 2-5) PO 6 tabs 0RF benzonatate 100 mg PO BID PRN 20 caps 0RF cough Coding Level of Care Code Est Pt Level 3 (15389) Diagnoses Upper respiratory tract infection, unspecified type J06.9 URI type: unspecified URI Time Spent (min) 20
[2023-05-11 10:31] VITALS: BP 110/62; PULSE 76; TEMP 36.2; O2SAT 99; BMI 32.7
== END 2023-05-11 11:37 | disposition home or self-care (01) ==
PROVIDERS: PCP Internal Medicine; Visit Provider Nurse Practitioner Primary Care
DX: J06.9 Acute upper respiratory infection, unspecified (principal)
CPT/HCPCS: 99213

== ENCOUNTER 2023-05-11 13:16 | Outpatient (REF) | payer OTHER, SELFPAY ==
[2023-05-11 14:34] LABS: Influenza A PCR NEGATIVE (Negative); Influenza B PCR NEGATIVE (Negative); Resp Syncy Virus RNA Qual PCR NEGATIVE (Negative); SARS COV2 PCR INHOUSE NEGATIVE (Negative)
== END 2023-05-11 13:17 | disposition home or self-care (01) ==
LOC: HO.HMGCLNP 13:16
PROVIDERS: Visit Provider Nurse Practitioner Primary Care
DX: J06.9 Acute upper respiratory infection, unspecified (principal); Z11.52 Encounter for screening for COVID-19
CPT/HCPCS: 0241U

== ENCOUNTER 2023-05-21 09:10 | Outpatient (AMB) | payer OTHER, SELFPAY ==
--- NOTE | 2023-05-21 09:11 | A.OFFPC_ITS ---
Vital Signs 05/21/23 09:12 Height 5 ft 2 in Intake Visit Reasons: Sick Visit [phone] Allergies bee pollen [BEE STINGS] Allergy (Severe, Verified 05/21/23 09:11) SWELLING Environmental Allergy (Intermediate, Uncoded 05/11/23 10:31) Nose Bleed Medication List - Last Reconciled 05/21/23 by Reuben Xie MD fluoxetine 40 mg PO DAILY nirmatrelvir-ritonavir 300 mg (150 mg x 2)-100 mg take TWO 150 mg tablets of nirmatrelvir with ONE 100 mg tablet of ritonavir twice daily for 5 days PO Tobacco use date assessed: 05/21/23 Dental Screening Dental Screen Date: 05/21/23 Did you have a dental visit in the last 12 months?: Yes Did you have a dental problem in the last 6 months where you did not have access to dental care?: No Was dental information given to patient?: Patient has dentist HPI Sick Visit [phone] HPI Details Telemedicine visit patient is a 47 year old female Patient started having respiratory symptoms 2 days ago she tested herself and it came back positive for COVID Currently patient is having headache body aches and pains coughing chest congestion feeling drained She is requesting COVID medication, she says that she has taken a medication 3 years ago and she tolerated it well Patient is aware of side effects. Reviewing her labs I see that her kidney functions are intact I have sent medication patient is due also push fluids she may take [id number] cold remedies as per her symptoms. [facility] Medical History Depression External hemorrhoids with complication Surgical History H/O tubal ligation History of hemorrhoidectomy History of wisdom tooth extraction History of hand surgery H/O section Social History Housing: House Patient Tobacco Use Status: Former Tobacco user Tobacco use type: Cigarette e-Cigarette/Vaping Use: Never Used Second Hand Smoke Exposure: No service: No Current occupational status: employed Current occupational exposures/hazards: No Cognitive needs: No Hearing needs: No Vision needs: No Questionnaire Thrive Questionnaire Date Thrive assessed: 04/21/23 AUDIT C Alcohol Use Questionnaire (AUDIT-C) 1. How often do you have a drink containing alcohol?: Never 3. How often do you have six or more drinks on one occasion?: Never Total Score: 0 Score Reviewed/Action Taken: Yes YESENIA-7 AMB Questionnaire YESENIA-7 Date YESENIA - 7 assessed: 04/21/23 Source: Developed by Drs. Zhao Nguyễn, Balbina Godfrey, Johnie Payan and colleagues, with an educational gallito from [employer]. Review of Systems ENT Denies epistaxis and Denies nasal discharge Card Denies chest pain Resp Denies hemoptysis GI Denies diarrhea and Denies nausea Skin/Breast Denies rash Neuro Reports no additional complaints Psych Reports no additional complaints Endo Reports no additional complaints Physical exam (Primary Care) Tobacco/Smoking Status: Tobacco use Status Tobacco use date assessed 05/21/23 05/21/23 09:12 Patient Tobacco Use Status Former Tobacco user 05/21/23 09:12 Tobacco use type Cigarette 05/21/23 09:12 e-Cigarette/Vaping Use Never Used 05/21/23 09:12 Thrive Assessment: Date of Thrive Assessment Date Thrive assessed 04/21/23 05/21/23 09:12 Const General: cooperative, comfortable and no acute distress Orientation/consciousness: patient oriented x3 HENMT Head: Yes normocephalic Eyes General: appearance normal, both eyes and all related structures Neck Neck: Yes supple Resp Effort & Inspection: normal respiratory effort, no cough and no stridor Cardio Rhythm: regular rhythm Heart sounds: S1 normal heart sound present and S2 normal heart sound present Skin General skin exam: turgor normal Neuro General: patient oriented x3, tone normal and moves all extremities Extrem Right lower extremity: no edema Left lower extremity: no edema Telehealth Telehealth Location of provider rendering services: practice address Location of patient: address on file Patient Identification confirmed using: Name, : Yes Telehealth method: voice only Patient verbally consented to treatment: Yes Patient verbally consented to billing insurance company: Yes Patient informed of any privacy concerns related to visit: Yes Minutes spent on Phone/Video with Pt.: 13 Assessment and Plan Assessment & Plan (1) COVID-19 virus infection: Code(s): U07.1 - COVID-19 (2) Respiratory tract congestion with cough: Code(s): R05.8 - Other specified cough Plan Telemedicine visit patient is a 47 year old female Patient started having respiratory symptoms 2 days ago she tested herself and it came back positive for COVID Currently patient is having headache body aches and pains coughing chest congestion feeling drained She is requesting COVID medication, she says that she has taken a medication 3 years ago and she tolerated it well Patient is aware of side effects. Reviewing her labs I see that her kidney functions are intact I have sent medication patient is due also push fluids she may take [id number] cold remedies as per her symptoms. Medications: New nirmatrelvir-ritonavir 300 mg (150 mg x 2)-100 mg take TWO 150 mg tablets of nirmatrelvir with ONE 100 mg tablet of ritonavir twice daily for 5 days PO 30 tabs 0RF Coding Level of Care Code Tele Est Pt Level 3 (48006) Diagnoses COVID-19 virus infection U07.1 Respiratory tract congestion with cough R05.8
== END 2023-05-21 10:57 | disposition home or self-care (01) ==
PROVIDERS: PCP Internal Medicine; Visit Provider Internal Medicine
DX: U07.1 COVID-19 (principal); R05.8 Other specified cough
CPT/HCPCS: 99213

== ENCOUNTER 2023-07-20 13:06 | Outpatient (AMB) | payer SELFPAY ==
--- NOTE | 2023-07-20 13:08 | MHC.PC.OV ---
Vital Signs 07/20/23 13:10 Height 5 ft 2 in Intake Visit Reasons: 3 month follow up/[id number] Allergies bee pollen [BEE STINGS] Allergy (Severe, Verified 07/20/23 13:09) SWELLING Environmental Allergy (Intermediate, Uncoded 05/11/23 10:31) Nose Bleed Medication List - Last Reconciled 07/20/23 by Reuben Xie MD fluoxetine 40 mg PO DAILY Tobacco use date assessed: 07/20/23 Dental Screening Dental Screen Date: 07/20/23 Did you have a dental visit in the last 12 months?: Yes Did you have a dental problem in the last 6 months where you did not have access to dental care?: No Was dental information given to patient?: Patient has dentist HPI 3 month follow up/[phone] HPI Details Patient is a 48-year-old female this is a telemedicine visit to fill her medication Patient is on fluoxetine 40 mg, she is doing well there is no depression anxiety there is no suicidal ideation Labs ordered in April when she came in physical examination, still not done Reminded patient is do them Medication refill sent Patient has appointment for follow-up in 3 months [facility] Medical History Depression External hemorrhoids with complication Surgical History H/O tubal ligation History of hemorrhoidectomy History of wisdom tooth extraction History of hand surgery H/O section Social History Housing: House Patient Tobacco Use Status: Former Tobacco user Tobacco use type: Cigarette e-Cigarette/Vaping Use: Never Used Second Hand Smoke Exposure: No service: No Current occupational status: employed Current occupational exposures/hazards: No Cognitive needs: No Hearing needs: No Vision needs: No Questionnaire Thrive Questionnaire Date Thrive assessed: 04/21/23 AUDIT C Alcohol Use Questionnaire (AUDIT-C) 1. How often do you have a drink containing alcohol?: Never 3. How often do you have six or more drinks on one occasion?: Never Total Score: 0 Score Reviewed/Action Taken: Yes YESENIA-7 AMB Questionnaire YESENIA-7 Date YESENIA - 7 assessed: 04/21/23 Source: Developed by Drs. Zhao Nguyễn, Balbina Godfrey, Johnie Payan and colleagues, with an educational gallito from [employer]. Review of Systems Const Denies chills and Denies fever(s) ENT Denies epistaxis and Denies nasal discharge Card Denies chest pain Resp Denies chest congestion, Denies cough and Denies hemoptysis GI Denies diarrhea and Denies nausea Skin/Breast Denies rash Neuro Reports no additional complaints Psych Reports no additional complaints Endo Reports no additional complaints Physical exam (Primary Care) Tobacco/Smoking Status: Tobacco use Status Tobacco use date assessed 07/20/23 07/20/23 13:10 Patient Tobacco Use Status Former Tobacco user 07/20/23 13:10 Tobacco use type Cigarette 07/20/23 13:10 e-Cigarette/Vaping Use Never Used 07/20/23 13:10 Thrive Assessment: Date of Thrive Assessment Date Thrive assessed 04/21/23 07/20/23 13:10 Telehealth Telehealth Location of provider rendering services: practice address Location of patient: address on file Patient Identification confirmed using: Name, : Yes Telehealth method: video (Attempted) Patient verbally consented to treatment: Yes Patient verbally consented to billing insurance company: Yes Patient informed of any privacy concerns related to visit: Yes Minutes spent on Phone/Video with Pt.: 13 Assessment and Plan Assessment & Plan (1) Major depression, recurrent: Code(s): F33.9 - Major depressive disorder, recurrent, unspecified Qualifiers: Active/Remission status: in full remission Qualified Code(s): F33.42 - Major depressive disorder, recurrent, in full remission (2) Anxiety, generalized: Code(s): F41.1 - Generalized anxiety disorder Plan Patient is a 48-year-old female this is a telemedicine visit to fill her medication Patient is on fluoxetine 40 mg, she is doing well there is no depression anxiety there is no suicidal ideation Labs ordered in April when she came in physical examination, still not done Reminded patient is do them Medication refill sent Patient has appointment for follow-up in 3 months Medications: Refilled fluoxetine 40 mg PO DAILY 90 caps 0RF Coding Level of Care Code Tele Est Pt Level 3 (99297) Diagnoses Recurrent major depressive disorder, in full remission F33.42 Active/Remission status: in full remission Anxiety, generalized F41.1
== END 2023-07-20 14:16 | disposition home or self-care (01) ==
LOC: HO.HMGC 13:07
PROVIDERS: PCP Internal Medicine; Visit Provider Internal Medicine
DX: F33.42 Major depressive disorder, recurrent, in full remission (principal); F41.1 Generalized anxiety disorder
CPT/HCPCS: 99213

== ENCOUNTER 2023-10-19 08:25 | Outpatient (AMB) | payer OTHER, SELFPAY ==
[2023-10-19 08:26] VITALS: BP 120/82; PULSE 73; O2SAT 99; BMI 33.4
--- NOTE | 2023-10-19 08:26 | A.OFFPC_ITS ---
Vital Signs 10/19/23 08:26 Height 5 ft 2 in Weight 182 lb 6 oz BMI 33.4 BP 120/82 Blood Pressure Location Rt brachial Position Sitting Pulse 73 Pulse Source Pulse Oximeter Pulse Oximetry (%) 99 Oxygen Delivery Method Room Air Intake Visit Reasons: 6 month follow up Allergies bee pollen [BEE STINGS] Allergy (Severe, Verified 10/19/23 08:26) SWELLING Environmental Allergy (Intermediate, Uncoded 05/11/23 10:31) Nose Bleed Medication List - Last Reconciled 10/19/23 by Reuben Xie MD No Known Home Meds Tobacco use date assessed: 10/19/23 Dental Screening Dental Screen Date: 10/19/23 Did you have a dental visit in the last 12 months?: Yes Did you have a dental problem in the last 6 months where you did not have access to dental care?: No Was dental information given to patient?: Patient has dentist HPI 6 month follow up HPI Details Patient is a 48-year-old female with a history of anxiety disorder Came in today for follow-up appointment Patient says that she lost her insurance and could not do labs, order was placed in April at her physical exam appointment She was taking fluoxetine 40 mg for anxiety and stopped that due to insurance issue as well. Patient is currently having anxiety problems and would like to go back on the medication. We will be restarting it at 20 mg dose She can have labs done today We will have a follow-up appointment with the telephone in 2 weeks. COUNTS INCLUDE 234 BEDS AT THE [facility] Medical History Depression External hemorrhoids with complication Surgical History H/O tubal ligation History of hemorrhoidectomy History of wisdom tooth extraction History of hand surgery H/O section Social History Housing: House Patient Tobacco Use Status: Former Tobacco user Tobacco use type: Cigarette e-Cigarette/Vaping Use: Never Used Second Hand Smoke Exposure: No service: No Current occupational status: employed Current occupational exposures/hazards: No Cognitive needs: No Hearing needs: No Vision needs: No Questionnaire PHQ-9 Over the last 2 weeks, how often have you been bothered by any of the following problems? 1. Little interest or pleasure in doing things: more than half the days 2. Feeling down, depressed, or hopeless: nearly every day 3. Trouble falling or staying asleep, or sleeping too much: more than half the days 4. Feeling tired or having little energy: nearly every day 5. Poor appetite or overeating: nearly every day 6. Feeling bad about yourself - or that you are a failure or have let yourself or your family down: several days 7. Trouble concentrating on things, such as reading the newspaper or watching television: not at all 8. Moving or speaking so slowly that other people could have noticed. Or the opposite - being so fidgety or restless that you have been moving around a lot more than usual: more than half the days 9. Thoughts that you would be better off or of hurting yourself in some way: not at all Total score: 16 Depression Screening Interpretation: Positive Depression Screening Follow-up: Existing condition and New Medication prescribed Depression Screening Done: Yes 27929 - PHQ-9 Billing: Yes Source: Developed by Drs. Zhao Nguyễn, Balbina Godfrey, Johnie Payan and colleagues, with an educational gallito from [employer] Thrive Questionnaire Date Thrive assessed: 10/19/23 I am a: Patient What is your living situation today?: I have a steady place to live Within the past 12 months, did the food you bought not last and you didn't have the money to get more?: Sometimes True Within the past 12 months, did you worry whether your food would run out before you got money to buy more?: Sometimes True Do you have trouble paying for medicines?: No Do you have trouble getting transportation to medical appointments?: No Do you have trouble paying your heating and electricity bill?: No Do you have trouble taking care of your child, family member or friend?: No Do you have trouble with day-to-day activities such as bathing, preparing meals, shopping, managing finances, etc.?: No Are you currently unemployed and looking for a job?: No Are you interested in more education?: No Please select the resources that you would like help with: Food and Utilities Currently or been in a relationship where the following occur: no concerns reported THRIVE Score: 2 AUDIT C Alcohol Use Questionnaire (AUDIT-C) 1. How often do you have a drink containing alcohol?: Monthly or less 2. How many drinks containing alcohol do you have on a typical day when you are drinking?: 1 or 2 3. How often do you have six or more drinks on one occasion?: Never Total Score: 1 Score Reviewed/Action Taken: Yes YESENIA-7 AMB Questionnaire YESENIA-7 Date YESENIA - 7 assessed: 10/19/23 Feeling nervous, anxious, or on edge: 2 = More than half the days Not being able to stop or control worryin = Nearly every day Worrying too much about different things: 3 = Nearly every day Trouble relaxin = Nearly every day Being so restless that it is hard to sit still: 2 = More than half the days Becoming easily annoyed or irritable: 3 = Nearly every day Feeling afraid as if something awful might happen: 3 = Nearly every day Total YESENIA-7 score (0-4 normal; 5-9 mild; 10-14 moderate; 15-21 severe): 19 Source: Developed by Drs. Zhao Nguyễn, Balbina Godfrey, Johnie Payan and colleagues, with an educational gallito from [employer] YESENIA-7 Assessment Billing YESENIA-7 Assessment Tool: YESENIA-7 Assessment 95439 Review of Systems Const Denies chills and Denies fever(s) ENT Denies epistaxis and Denies nasal discharge Card Denies chest pain Resp Denies chest congestion, Denies cough and Denies hemoptysis GI Denies diarrhea and Denies nausea Skin/Breast Denies rash Neuro Reports no additional complaints Psych Reports no additional complaints Endo Reports no additional complaints Physical exam (Primary Care) Vital Signs: Last Vital Signs Pulse 73 10/19/23 08:26 BP 120/82 10/19/23 08:26 Pulse Ox 99 10/19/23 08:26 Oxygen Delivery Method Room Air 10/19/23 08:26 BMI result Body Mass Index 33.4 Tobacco/Smoking Status: Tobacco use Status Tobacco use date assessed 10/19/23 10/19/23 08:31 Patient Tobacco Use Status Former Tobacco user 10/19/23 08:31 Tobacco use type Cigarette 10/19/23 08:31 e-Cigarette/Vaping Use Never Used 10/19/23 08:31 PHQ-9: PHQ-9 Score PHQ-9: Total score 16 06/18/24 08:34 Depression Screening Interpretation: Positive Depression Screening Follow-up: Existing condition and New Medication prescribed Thrive Assessment: Date of Thrive Assessment Date Thrive assessed 10/19/23 10/19/23 08:35 Currently or been in a relationship where the following occur: no concerns reported Const General: cooperative, comfortable and no acute distress Orientation/consciousness: patient oriented x3 HENMT Head: Yes normocephalic Eyes General: appearance normal, both eyes and all related structures Neck Neck: Yes supple Resp Effort & Inspection: normal respiratory effort, no cough and no stridor Cardio Rhythm: regular rhythm Heart sounds: S1 normal heart sound present and S2 normal heart sound present Skin General skin exam: turgor normal Neuro General: patient oriented x3, tone normal and moves all extremities Extrem Right lower extremity: no edema Left lower extremity: no edema Assessment and Plan Assessment & Plan (1) Anxiety, generalized: Code(s): F41.1 - Generalized anxiety disorder Plan Patient is a 48-year-old female with a history of anxiety disorder Came in today for follow-up appointment Patient says that she lost her insurance and could not do labs, order was placed in April at her physical exam appointment She was taking fluoxetine 40 mg for anxiety and stopped that due to insurance issue as well. Patient is currently having anxiety problems and would like to go back on the medication. We will be restarting it at 20 mg dose She can have labs done today We will have a follow-up appointment with the telephone in 2 weeks. Medications: New fluoxetine 20 mg PO DAILY 30 caps 0RF Coding Level of Care Code Est Pt Level 3 (54818) Complex EM visit Add On G2211 Diagnoses Anxiety, generalized F41.1 Additional Codes YESENIA-7 Assessment Billing - YESENIA-7 Assessment Tool: YESENIA-7 Assessment 46598 ([id number])
== END 2023-10-19 08:42 | disposition home or self-care (01) ==
PROVIDERS: PCP Internal Medicine; Visit Provider Internal Medicine
DX: F41.1 Generalized anxiety disorder (principal)
CPT/HCPCS: 96127; 99213; G2211

== ENCOUNTER 2023-10-19 08:43 | Outpatient (REF) | payer OTHER, SELFPAY ==
[2023-10-19 10:17] LABS: MANUAL DIFF FLAG NO
[2023-10-19 10:25] LABS: Basophils Percent Auto 0.8 % (0-2); Eosinophils Absolute Auto 0.1 X10*3/uL (0.0-0.4); Eosinophils Percent Auto 2.1 % (0-4); Hematocrit 39.3 % (37.0-47.0); Hemoglobin 12.7 g/dl (12.0-16.0); Imm Gran Abs Auto 0.01 X10*3/uL (0.00-0.03); Imm Gran Pct Auto 0.2 % (0.0-0.4); Lymphocytes Absolute Auto 1.2 X10*3/uL (1.2-4.9); Lymphocytes Percent Auto 22.2 % (20-40); Mean Corpuscular HGB Conc 32.3 g/dl (31.0-35.0); Mean Corpuscular Hemoglobin 27.5 pg (27.0-33.0); Mean Corpuscular Volume 85.2 fL (80.0-98.0); Mean Platelet Volume 12.1 fL (9.4-12.3); Monocytes Absolute Auto 0.6 X10*3/uL (0.1-1.2); Monocytes Percent Auto 10.7 % (2-11); Neutrophils Absolute Auto 3.4 x10*3/uL (2.0-8.3); Platelet Count 277 X10*3/uL (160-400); Red Blood Count 4.61 X10*6/uL (4.20-5.50); Red Cell Distribution Width 13.6 % (11.0-16.0); White Blood Count 5.3 X10*3/uL (4.8-10.8)
[2023-10-19 11:17] LABS: Alanine Aminotransferase 18 U/L (0-31); Alkaline Phosphatase 55 U/L (39-117); Anion Gap 10 (12-20); Aspartate Amino Transferase 18 U/L (5-31); Bilirubin Total 0.9 mg/dL (0.0-1.0); Blood Urea Nitrogen 12 mg/dL (9-16); Calcium 9.2 mg/dL (8.4-10.2); Carbon Dioxide 26 mmol/L (22-29); Chloride 108 mmol/L (96-108); Estimated Glomerular Filt Rate > 60; Glucose Random 83 mg/dL (60-115); Potassium 4.4 mmol/L (3.3-5.1); Sodium 140 mmol/L (135-145); TSH reflex Free T4 1.59 uIU/mL (0.32-4.0); Total Protein 7.2 g/dL (6.5-8.0)
[2023-10-20 17:13] LABS: LDL Cholesterol Direct 113 mg/dL (<100)
== END 2023-10-19 08:44 | disposition home or self-care (01) ==
LOC: HO.HMGCLDS 08:43
PROVIDERS: Internal Medicine; PCP Internal Medicine; Visit Provider Internal Medicine
DX: Z00.01 Encounter for general adult medical examination with abnormal findings (principal); F33.9 Major depressive disorder, recurrent, unspecified; E66.09 Other obesity due to excess calories; F41.1 Generalized anxiety disorder
CPT/HCPCS: 36415; 80053; 83721; 84443; 85025

== ENCOUNTER 2023-11-05 07:25 | Outpatient (AMB) | payer OTHER, SELFPAY ==
--- NOTE | 2023-11-05 07:38 | A.OFFPC_ITS ---
Intake Visit Reasons: 2 Week Follow Up Allergies bee pollen [BEE STINGS] Allergy (Severe, Verified 10/19/23 08:26) SWELLING Environmental Allergy (Intermediate, Uncoded 05/11/23 10:31) Nose Bleed Medication List - Last Reconciled 11/05/23 by Reuben Xie MD fluoxetine 20 mg PO DAILY Tobacco use date assessed: 10/19/23 Dental Screening Dental Screen Date: 10/19/23 HPI 2 Week Follow Up HPI Details Patient is a 48-year-old female this is a telemedicine conference Patient was restarted on fluoxetine 20 mg 2 weeks ago Patient says that her anxiety is much better and she feels 20 mg is enough dose for her She is tolerating medication there are no side effects. Labs done recently reviewed with the patient CBC , metabolic profile, thyroid, all within normal limit Lipids are within reasonable control Patient will continue medication and will return in April for follow-up. [facility] Medical History Depression External hemorrhoids with complication Surgical History H/O tubal ligation History of hemorrhoidectomy History of wisdom tooth extraction History of hand surgery H/O section Social History Housing: House Patient Tobacco Use Status: Former Tobacco user Tobacco use type: Cigarette e-Cigarette/Vaping Use: Never Used Second Hand Smoke Exposure: No service: No Current occupational status: employed Current occupational exposures/hazards: No Cognitive needs: No Hearing needs: No Vision needs: No Questionnaire Thrive Questionnaire Date Thrive assessed: 10/19/23 YESENIA-7 AMB Questionnaire YESENIA-7 Date YESENIA - 7 assessed: 10/19/23 Source: Developed by Drs. Zhao Nguyễn, Balbina Godfrey, Johnie Payan and colleagues, with an educational gallito from [employer]. Review of Systems Const Denies chills and Denies fever(s) ENT Denies epistaxis and Denies nasal discharge Card Denies chest pain Resp Denies chest congestion, Denies cough and Denies hemoptysis GI Denies diarrhea and Denies nausea Skin/Breast Denies rash Neuro Reports no additional complaints Psych Reports no additional complaints Endo Reports no additional complaints Physical exam (Primary Care) Tobacco/Smoking Status: Tobacco use Status Tobacco use date assessed 10/19/23 10/19/23 08:31 Patient Tobacco Use Status Former Tobacco user 10/19/23 08:31 Tobacco use type Cigarette 10/19/23 08:31 e-Cigarette/Vaping Use Never Used 10/19/23 08:31 Thrive Assessment: Date of Thrive Assessment Date Thrive assessed 10/19/23 10/19/23 08:35 Telehealth Telehealth Telehealth Platform: [employer] Location of provider rendering services: practice address Location of patient: address on file Patient Identification confirmed using: Name, : Yes Telehealth method: voice only Patient verbally consented to treatment: Yes Patient verbally consented to billing insurance company: Yes Patient informed of any privacy concerns related to visit: Yes Assessment and Plan Assessment & Plan (1) Anxiety, generalized: Code(s): F41.1 - Generalized anxiety disorder Plan Patient is a 48-year-old female this is a telemedicine conference Patient was restarted on fluoxetine 20 mg 2 weeks ago Patient says that her anxiety is much better and she feels 20 mg is enough dose for her She is tolerating medication there are no side effects. Labs done recently reviewed with the patient CBC , metabolic profile, thyroid, all within normal limit Lipids are within reasonable control Patient will continue medication and will return in April for follow-up. 14 minute appointment including reviewing chart, labs, talking to patient, addressing medication refills Medications: Refilled fluoxetine 20 mg PO DAILY 90 caps 1RF Coding Level of Care Code Tele Est Pt Level 3 (74448) Diagnoses Anxiety, generalized F41.1
== END 2023-11-05 09:04 | disposition home or self-care (01) ==
LOC: HO.HMGC 07:25
PROVIDERS: PCP Internal Medicine; Visit Provider Internal Medicine
DX: F41.1 Generalized anxiety disorder (principal)
CPT/HCPCS: 99213

== ENCOUNTER 2024-05-19 20:47 | Emergency (ER) | payer OTHER, SELFPAY ==
--- NOTE | ~2024-05-19 | XR_ITS ---
CLINICAL HISTORY: cough 2 view chest x-ray Comparison: None Findings: The lungs are clear. Normal size heart. No acute fracture. IMPRESSION: 1. No acute findings. This document has been electronically signed by: Viv Huitron MD on 05/19/2024 21:50:23
[2024-05-19 20:57] VITALS: BP 133/85; PULSE 82; RESP 16; TEMP 35.7; O2SAT 96; BMI 33.8
--- NOTE | 2024-05-19 23:32 | ED_ITS ---
HPI - General Adult General Chief complaint: Upper Respiratory Symptoms Stated complaint: unresolved upper respiratory infection Time Seen by Provider: 05/19/24 22:17 Source: patient Limitations: no limitations History of Present Illness ED Provider: Geneva Celaya PA-C HPI narrative: 48-year-old female presents with cough and cold symptoms x3 weeks. Patient states her cough is still persisting. Patient is seen at urgent care last week she screened negative for influenza, RSV and COVID. Denies history of asthma/COPD, no tobacco abuse. Related Data Previous Rx's ?Medication ?Instructions ?Recorded fluoxetine 20 mg capsule 20 mg PO DAILY #90 caps 11/05/23 benzonatate 200 mg capsule 200 mg PO TID PRN cough #15 caps 05/20/24 Allergies Allergy/AdvReac Type Severity Reaction Status Date / Time bee pollen [BEE STINGS] Allergy Severe SWELLING Verified 05/19/24 20:58 Environmental Allergy Intermediate Nose Bleed Uncoded 05/19/24 20:58 Review of Systems Review of Systems: Yes all other systems are reviewed and are negative Constitutional: Constitutional: Denies fatigue and Denies fever(s) Cardiovascular: Cardiovascular: Denies chest pain and Denies dyspnea Respiratory: Respiratory: Reports cough, Denies dyspnea and Denies wheezing Endocrine: Endocrine: Denies fatigue Allergic/Immunologic: Allergic/Immunologic: Denies wheezing PMFSH Past Medical History Attestation statement: The following information was validated with the patient. Medical History Depression External hemorrhoids with complication Surgical History H/O tubal ligation History of hemorrhoidectomy History of wisdom tooth extraction History of hand surgery H/O section Social History Social History Housing: House Patient Tobacco Use Status: Former Tobacco user Tobacco use type: Cigarette e-Cigarette/Vaping Use: Never Used Second Hand Smoke Exposure: No Advance Directives: No Advance Directives Information Provided: No Do you have a plan to hurt others: No Plan service: No Current occupational status: employed Current occupational exposures/hazards: No Cognitive needs: No Hearing needs: No Vision needs: No Physical Exam ED Vital Signs: Vital Signs - 24 hr 05/19/24 20:57 Temperature 96.3 F L Pulse Rate 82 Respiratory Rate 16 Blood Pressure 133/85 Pulse Oximetry 96 Oxygen Delivery Method Room Air BMI result Body Mass Index 33.8 Const Other: Alert well-appearing Orientation/consciousness: patient oriented x3 Resp Effort & Inspection: normal respiratory effort Cardio Other: Normal peripheral perfusion Skin Other: Warm dry no rash Neuro General: patient oriented x3, no focal motor deficits and CN's II-XI intact bilaterally Psych Other: Calm cooperative Medical Decision Making Medical Decision Making MDM Narrative: 48-year-old female presents with cough and cold symptoms x3 weeks. Patient states her cough is still persisting. Patient is seen at urgent care last week she screened negative for influenza, RSV and COVID. Denies history of asthma/COPD, no tobacco abuse. No chronic issues History: Per patient I have considered the following differential diagnoses: Viral syndrome, reactive airway, asthma/COPD exacerbation, bronchitis, pneumonia Plan: Viral panel and a chest x-ray were obtained from triage. Everything unremarkable. Patient is having a prolonged viral cough. It is self-limiting, we will send with Mary Carmen Bsahir. I have independently reviewed the following tests: Labs: Viral panel negative Chest x-ray:Comparison: None Findings: The lungs are clear. Normal size heart. No acute fracture. IMPRESSION: 1. No acute findings. This document has been electronically signed by: Viv Huitron MD on 05/19/2024 21:50:23 Lab Data Labs: Lab Results 05/19/24 Range/Units 22:38 Influenza Type A (PCR) NEGATIVE (Negative) Influenza Type B (PCR) NEGATIVE (Negative) RSV RNA Qual (PCR) NEGATIVE (Negative) SARS-CoV-2 RNA (RT-PCR) NEGATIVE (Negative) Discharge Plan Discharge Clinical Impression: Cough Patient Disposition: Home, Self-Care Instructions: Acute Cough (ED) Additional Instructions: Your chest x-ray and viral panel were normal. Some of the respiratory viruses circulating within the community can cause a cough that persists for several weeks. Use the Viviennesalon Perles as needed for cough. Follow up with your [facility] care provider as needed. Prescriptions: New benzonatate 200 mg capsule 200 mg PO TID PRN (Reason: cough) Qty: 15 0RF No Action fluoxetine 20 mg capsule 20 mg PO DAILY Qty: 90 1RF Print Language: Bahamian
[2024-05-19 23:41] LABS: Influenza A PCR NEGATIVE (Negative); Influenza B PCR NEGATIVE (Negative); Resp Syncy Virus RNA Qual PCR NEGATIVE (Negative); SARS COV2 PCR INHOUSE NEGATIVE (Negative)
== END 2024-05-20 03:16 | disposition home or self-care (01) ==
PROVIDERS: Emergency Provider Emergency Medicine; PCP Internal Medicine
DX: R05.9 Cough, unspecified (principal); Z03.818 Encounter for observation for suspected exposure to other biological agents ruled out; Z87.891 Personal history of nicotine dependence
CPT/HCPCS: 0241U; 71046; 99281; 99283

== ENCOUNTER → 2024-05-19 20:57 | Outpatient (BNV) | payer OTHER, SELFPAY | PROVIDERS: PCP Internal Medicine; Visit Provider Radiology Diagnostic Radiology | DX: R05.9 Cough, unspecified (principal) | CPT/HCPCS: 71046 ==

== ENCOUNTER 2024-06-03 09:23 | Outpatient (AMB) | payer OTHER, SELFPAY ==
[2024-06-03 09:32] VITALS: BP 118/74; PULSE 76; TEMP 37; O2SAT 98; BMI 33.8
--- NOTE | 2024-06-03 09:32 | AM.OFFWIN_ITS ---
Intake Vital Signs 06/03/24 09:32 Height 5 ft 2 in Weight 185 lb BMI 33.8 BP 118/74 Blood Pressure Location Lt brachial Position Sitting Pulse 76 Pulse Source Pulse Oximeter Temp 98.6 F Temp Source Oral Pulse Oximetry (%) 98 Intake Visit Reasons: EP- cough, cold symp Intake Note: pt is here for cough, green phelm Patient Tobacco Use Status: Former Tobacco user Allergies bee pollen [BEE STINGS] Allergy (Severe, Verified 06/03/24 09:49) SWELLING Environmental Allergy (Intermediate, Uncoded 06/03/24 09:49) Nose Bleed Medication List - Last Reconciled 06/03/24 by Rocio Merlos, [employer]- fluoxetine 20 mg PO DAILY Do you need a note to return to daycare/school/sports/work: No HPI HPI Comments History of Present Illness Details History of Present Illness The patient is a 48-year-old female presenting with a persistent cough. This issue started approximately one month ago. The cough was initially non- productive and has since progressed to producing green sputum. The patient has been evaluated twice before, with no significant findings from an X-ray and a negative viral panel. She was treated with tessalon that provided minimal relief. There were no recent respiratory infections or changes in health status. She reports the cough persists, with nasal congestion and postnasal drainage. She denies any recent travel aside from within the state. All vaccinations are up to date, including a Tdap booster in April. 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 No apparent distress Eyes: Sclera and conjunctiva clear bilaterally Nose: Nares with thick white d/c bilat, turbinates pale and edematous, + tenderness with palpation to maxillary sinuses bilaterally Ears: Tympanic membranes intact and clear bilaterally Throat: Moist mucosa membrane, pharynx within normal limits Cardiovascular: Regular rate and rhythm Respiratory: Clear to auscultation bilaterally Results - Tests and Diagnostics: Previous chest X-ray normal, viral panel negative 05/29/24 visit notes and labs reviewed du zaynab todays visit Discussion Notes The patient was educated on the likely diagnosis of sinusitis causing the persistent cough. I discussed the potential role of postnasal drip contributing to her cough and the planned course of antibiotics to address the sinus infection. Given the current pertussis outbreak in the region, exposure was noted as a consideration, although unlikely due to her vaccination status. We agreed to initiate treatment with Augmentin, noting that it should be taken with food to minimize gastrointestinal upset. I emphasized the importance of nasal spray usage to help alleviate sinus congestion. Furthermore, I suggested a saline nasal rinse to thin secretions. I advised that if symptoms do not improve or worsen, she should return for a follow-up evaluation. Patient Instructions - Take Augmentin as prescribed, twice da jose a with food for seven days. - Use Flonase nasal spray, one spray eac h side twice a day until symptoms improve. - Consider using a nasal saline rinse to help thin secretions. - Follow up if symptoms do not improve o r if they worsen. Plan - Start prescription of Augmentin for si nusitis: Twice daily for 7 days with food. - Initiate Flonase nasal spray: One spra y per nostril twice daily. - Consider nasal saline rinse to aid in secretion clearance. - Monitor symptoms and return for follow -up if necessary. - Noted current pertussis outbreak in [facility]; patient should maintain current vaccination status. Patient was informed and verbally consented to the use of an ambient scribe for clinic note documentation during this visit. [facility] Medical History Depression External hemorrhoids with complication Surgical History H/O tubal ligation History of hemorrhoidectomy History of wisdom tooth extraction History of hand surgery H/O section Social History Housing: House Patient Tobacco Use Status: Former Tobacco user Tobacco use type: Cigarette e-Cigarette/Vaping Use: Never Used Second Hand Smoke Exposure: No service: No Current occupational status: employed Current occupational exposures/hazards: No Cognitive needs: No Hearing needs: No Vision needs: No Physical Exam Vital Signs: Last Vital Signs Temp 98.6 F 06/03/24 09:32 Pulse 76 06/03/24 09:32 BP 118/74 06/03/24 09:32 Pulse Ox 98 06/03/24 09:32 BMI result Body Mass Index 33.8 Results Reviewed Results Reviewed: [address] [address] XRay Report Signed Patient: aDnae Curran MR#: [id number] : 1975 Acct:[id number] Age/Sex: 48 / F ADM Date: 05/19/24 Loc: HO.ED Attending Dr: Ordering Physician: Casey Bailey Date of Service: 05/19/24 Procedure(s): XR chest 2V Accession Number(s): [id number] cc: Jhoana Betancourt MD; Casey Bailey~ CLINICAL HISTORY: cough 2 view chest x-ray Comparison: None Findings: The lungs are clear. Normal size heart. No acute fracture. IMPRESSION: 1. No acute findings. This document has been electronically signed by: Viv Huitron MD on 05/19/2024 21:50:23 Assessment & Plan Assessment & Plan (1) Acute bacterial sinusitis: Code(s): J01.90 - Acute sinusitis, unspecified; B96.89 - Other specified bacterial agents as the cause of diseases classified elsewhere Plan: . (2) Post-nasal drip: Code(s): R09.82 - Postnasal drip Plan: . Plan . Medications: New fluticasone propionate 50 mcg/actuation administer into each nostril 1 spray intranasal BID 16 grams 0RF amoxicillin-pot clavulanate 875-125 mg 1 tab PO BID 14 tabs 0RF 7 days Coding Level of Care Code Est Pt Level 4 (55951) Diagnoses Acute bacterial sinusitis J01.90; B96.89 Post-nasal drip R09.82 Time Spent (min) 30
== END 2024-06-03 09:57 | disposition home or self-care (01) ==
PROVIDERS: PCP Internal Medicine; Visit Provider Nurse Practitioner Family
DX: J01.90 Acute sinusitis, unspecified (principal); B96.89 Other specified bacterial agents as the cause of diseases classified elsewhere; R09.82 Postnasal drip

== ENCOUNTER 2024-06-06 09:56 | Outpatient (AMB) | payer OTHER, SELFPAY ==
[2024-06-06 10:01] VITALS: BP 118/70; PULSE 75; RESP 16; TEMP 37.2; O2SAT 98; BMI 34.3
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
== END 2024-06-06 10:25 | disposition home or self-care (01) ==
PROVIDERS: PCP Internal Medicine; Visit Provider Internal Medicine
DX: Z00.00 Encounter for general adult medical examination without abnormal findings (principal); F41.1 Generalized anxiety disorder; F33.42 Major depressive disorder, recurrent, in full remission; E66.09 Other obesity due to excess calories; Z68.32 Body mass index [BMI] 32.0-32.9, adult

== ENCOUNTER 2024-06-08 07:52 | Outpatient (REF) | payer OTHER, SELFPAY ==
[2024-06-08 10:02] LABS: MANUAL DIFF FLAG NO
[2024-06-08 10:03] LABS: Appearance Urine Turbid; Color Urine Yellow; Glucose Urine UA Negative (Negative); Leukocyte Esterase Urine Negative (Negative); Nitrite Urine Negative (Negative); PH 5.5 (5.0-9.0); Specific Gravity - Urine >= 1.030 (1.005-1.025); Urine Blood Negative (Negative); Urine Ketones Negative (Negative); Urine Protein Negative (Neg-Trace)
[2024-06-08 10:06] LABS: Basophils Absolute Auto 0.1 X10*3/uL (0.0-0.2); Basophils Percent Auto 0.7 % (0-2); Eosinophils Absolute Auto 0.2 X10*3/uL (0.0-0.4); Eosinophils Percent Auto 2.6 % (0-4); Hematocrit 39.9 % (37.0-47.0); Hemoglobin 12.9 g/dl (12.0-16.0); Imm Gran Abs Auto 0.02 X10*3/uL (0.00-0.03); Imm Gran Pct Auto 0.3 % (0.0-0.4); Lymphocytes Absolute Auto 1.9 X10*3/uL (1.2-4.9); Lymphocytes Percent Auto 26.4 % (20-40); Mean Corpuscular HGB Conc 32.3 g/dl (31.0-35.0); Mean Corpuscular Hemoglobin 27.3 pg (27.0-33.0); Mean Corpuscular Volume 84.4 fL (80.0-98.0); Mean Platelet Volume 12.3 fL (9.4-12.3); Monocytes Absolute Auto 0.7 X10*3/uL (0.1-1.2); Monocytes Percent Auto 9.8 % (2-11); Neutrophils Absolute Auto 4.3 x10*3/uL (2.0-8.3); Neutrophils Percent Auto 60.2 % (45-73); Platelet Count 272 X10*3/uL (160-400); Red Blood Count 4.73 X10*6/uL (4.20-5.50); Red Cell Distribution Width 13.1 % (11.0-16.0); White Blood Count 7.1 X10*3/uL (4.8-10.8)
[2024-06-08 10:22] LABS: Alanine Aminotransferase 17 U/L (0-31); Albumin Level 3.9 g/dL (3.5-5.0); Alkaline Phosphatase 51 U/L (39-117); Anion Gap 9 (12-20); Aspartate Amino Transferase 23 U/L (5-31); Blood Urea Nitrogen 15 mg/dL (9-16); Calcium 8.8 mg/dL (8.4-10.2); Carbon Dioxide 24 mmol/L (22-29); Chloride 107 mmol/L (96-108); Cholesterol 155 mg/dL (<200); Estimated Glomerular Filt Rate > 60; Glucose Fasting 87 mg/dL (60-99); HDL Cholesterol 43 mg/dL (>40); LDL Cholesterol Calculated 92 mg/dL (<100); Potassium 3.8 mmol/L (3.3-5.1); Sodium 136 mmol/L (135-145); Total Protein 7.2 g/dL (6.5-8.0); Triglycerides 100 mg/dL (<150)
[2024-06-08 10:41] LABS: TSH reflex Free T4 1.02 uIU/mL (0.32-4.0)
== END 2024-06-08 07:53 | disposition home or self-care (01) ==
LOC: HO.HMGCLDS 07:52
PROVIDERS: PCP Internal Medicine; Visit Provider Internal Medicine
DX: Z00.01 Encounter for general adult medical examination with abnormal findings (principal); F41.1 Generalized anxiety disorder; F33.42 Major depressive disorder, recurrent, in full remission; E66.09 Other obesity due to excess calories; Z68.32 Body mass index [BMI] 32.0-32.9, adult
CPT/HCPCS: 36415; 80053; 80061; 81003; 84443; 85025

== ENCOUNTER 2024-07-04 13:31 | Outpatient (REF) | payer OTHER, SELFPAY ==
--- NOTE | ~2024-07-04 | MM_ITS ---
EXAMINATION: MM SCREENING DIGITAL BREAST TOMOSYNTHESIS, BILATERAL CLINICAL INFORMATION: Screening. Asymptomatic. COMPARISON: Mammography: Comparison is made with available priors TECHNIQUE: Digital breast mammography with tomosynthesis is performed in both the craniocaudal and mediolateral oblique views along with computer-aided detection (CAD). FINDINGS: There are scattered areas of fibroglandular density (ACR BI-RADS breast composition Category b). Right: Circumscribed oval mass in the retroareolar region anterior depth. No suspicious calcifications or other abnormal findings. Left: There are no significant masses, abnormal calcifications, or other abnormalities. MM/MM tomosynthesis screening BI IMPRESSION: Additional imaging is recommended ASSESSMENT: BI-RADS BI-RADS 0 - Incomplete: Needs additional Imaging. RECOMMENDATION: 1. Additional views of the right breast. 2. Targeted ultrasound if warranted after review of the additional views. 3. Radiology department staff will contact the patient for additional imaging. Additional Imaging required This examination should not preclude the clinical evaluation of a suspicious palpable abnormality. This patient's information was entered into a reminder system with a target due date for their next mammogram. Electronically signed by: Debbie Man DO 07/06/2024 06:08 AM SANDR[facility]
== END 2024-07-04 13:32 | disposition home or self-care (01) ==
LOC: HO.MAMMO 13:31
PROVIDERS: PCP Internal Medicine; Visit Provider Internal Medicine
DX: Z12.31 Encounter for screening mammogram for malignant neoplasm of breast (principal)
CPT/HCPCS: 77063; 77067